=== PATIENT | female | born 1995 | race African-American/Black ===

== ENCOUNTER 2020-06-23 22:22 | Emergency (ER) | payer BC ==
[~2020-06-23] VITALS: Ht 180.3 cm; Wt 70.2 kg
[2020-06-24] LABS: BILIRUBIN,URINE NEG (NEG); CLARITY,URINE CLEAR; COLOR,URINE YELLOW; GLUCOSE,URINE NEG (NEG); NITRITE,URINE NEG (NEG); UROBILINOGEN,URINE 0.2 mg/dL (0.2 mg/dL)
[2020-06-24 00:01] LABS: BACTERIA,URINE FEW /HPF (0-FEW); SQUAMOUS EPITHELIAL CELL,UR MOD /LPF
[2020-06-24] MEDS ORDERED: CEPH-264 PO (00:26)
--- NOTE | 2020-06-24 00:27 | PHYS DOC ---
Adult General Chief Complaint Chief Complaint: PAIN ON URINATION HPI HPI Patient is a 24 year old female who presents with dysuria. She states this is been ongoing for the last couple of days. She does not typically get this. She does not believe she is ever had a UTI. She is not greatly concerned about STDs but she is not 100% sure and would like to be tested. She states that she only gets burning with urination. She is also been getting some lower abdominal cramping. These are intermittent. She denies any vaginal bleeding or discharge. She has not had any nausea, vomiting, diarrhea, constipation. Review of Systems Review of Systems General: Denies fever, chills, sweats, fatigue Eyes: Denies drainage, blurred vision, eye redness HENT: Denies rhinorrhea, sore throat, earache Respiratory: Denies cough, shortness of breath, wheezing Cardiac: Denies edema, palpitations, chest pain GI: Denies abdominal pain, Nausea, vomiting MSK: Denies back pain, neck pain Skin: Denies rash, jaundice Neuro: Denies headache, dizziness Psychiatric: Denies SI/HI Allergies Allergies Allergies Coded Allergies Type Severity Reaction Last Updated Verified No Known Drug Allergies 06/23/20 No Physical Exam Physical Exam General: Awake, alert, NAD. Well Nourished, well hydrated. Cooperative HEENT: Atraumatic, EOMI, PERRL, airway patent, moist oral mucosa Neck: Supple, trachea midline Respiratory: CTA bilaterally, normal effort, no wheezing/crackles CV: RRR, no murmur, cap refill <2 GI: Soft, nondistended, nontender, no masses MSK: No obvious deformities Skin: Warm, dry, intact Neuro: A&O x3, speech NL, sensory and motor grossly intact, no focal deficits Psych: Normal affect, normal mood, not suicidal or homicidal Current Patient Data Lab Results Laboratory Tests Test 06/23/20 23:20 Urine Collection Type Unknown Urine Color Yellow Urine Clarity Clear Urine pH 6.5 Urine Specific [place] >=1.030 Urine Protein Neg (NEG-TRACE) Urine Glucose (UA) Neg mg/dL (NEG) Urine Ketones (Stick) Neg mg/dL (NEG) Urine Blood Neg (NEG) Urine Nitrite Neg (NEG) Urine Bilirubin Neg (NEG) Urine Urobilinogen Dipstick 0.2 mg/dL (0.2 mg/dL) Urine Leukocyte Esterase Small (NEG) Urine RBC 3-5 /HPF (0-2) Urine WBC 11-20 /HPF (0-4) Urine Squamous Epithelial Cells Mod /LPF Urine Bacteria Few /HPF (0-FEW) EKG EKG [] Radiology/Procedures Radiology/Procedures [] Course & Med Decision Making Course & Med Decision Making Pertinent Labs and Imaging studies reviewed. (See chart for details) Dysuria and intermittent abdominal cramping.patient's test was positive. I have discussed the results with the patient. Given her intermittent abdominal cramping we will do an ultrasound to rule out an ectopic and beta-hCG will be ordered. Patient being treated empirically for gonorrhea and chlamydia. She will also be placed on Keflex for UTI. Ultrasound shows a 6-week . No signs of an ectopic at this time. Patient will follow-up with her [facility]. Patient's test results and vitals while in the ED were fully reviewed and discussed with the patient. Patient is stable and at this time does not need admission to the hospital. We have discussed strict return precautions and the importance of following up with their Primary Care Physician. Patient stated understanding and was given an opportunity to ask any questions. Patient is in agreement with plan. Dragon Disclaimer Dragon Disclaimer This electronic medical record was generated, in whole or in part, using a voice recognition dictation system. Departure Departure: Impression: Primary Impression: UTI (urinary tract infection) Additional Impression: Abdominal pain affecting Disposition: HOME/RESIDENCE PRIOR TO ADM Condition: STABLE Referrals: PCP,NO (PCP) Patient Instructions: Urinary Tract Infection Scripts Cephalexin (KEFLEX) 500 Mg Capsule 1 CAP PO BID for UTI for 7 Days, #14 CAP 0 Refills Prov: CHRIS REYES MD 06/24/20 Justification of Admission: Justification of Admission: Justification of Admission Dx: No Problem Qualifiers CHRIS REYES MD Jun 24, 2020 00:26
[2020-06-24] MEDS: ONDANSETRON ODT 4 MG TAB.RAPDIS PO ONE (02:04)
[2020-06-24] MEDS: cefTRIAXone IM 250 MG VIAL IM ONE (02:05)
[2020-06-24] MEDS: AZITHROMYCIN 250 MG TABLET. PO ONE (02:05)
--- NOTE | 2020-06-24 02:10 | RAD ---
Obstetric ultrasound less than 14 weeks with transvaginal: Reason for examination: Pain on urination. Transabdominal and transvaginal ultrasound examination of the pelvis was performed. Transabdominally, the bladder is not well-distended and uterus and adnexal structures are poorly visualized. Transvaginally, the uterus measures 10 x 7 x 6 cm in greatest dimension with no focal lesion. Intrauterine gestational sac is present and shows a normal contour. Yolk sac is identified. pole is present with a cardiac rate of 120 bpm. [place]-rump length is 0.79 cm corresponding to gestational age of 6 weeks 5 days with estimated date of confinement of 02/12/2021. Right ovary measures 3.9 x 2.6 x 2.1 cm in greatest dimension and shows normal vascular flow with corpus luteum measuring 2.3 cm in size. Left ovary is normal in size at 2.8 x 1.7 x 1.4 cm in greatest dimension with good vascular flow and no mass. No free fluid is present. IMPRESSION: Single viable intrauterine gestation with a mean gestational age estimated at 6 weeks 5 days with estimated date of confinement of 02/12/2021. Probable corpus luteum at the right ovary measuring 2.3 cm in size. Electronically signed by: Opal Hickey MD (06/24/2020 2:07 AM) [id number]
[2020-06-24 02:38] VITALS: BP 101/72
== END 2020-06-24 02:38 | disposition home or self-care (01) ==
LOC: ER 22:22
DX: O23.41 Unspecified infection of urinary tract in pregnancy, first trimester (principal); Z3A.01 Less than 8 weeks gestation of pregnancy
CPT/HCPCS: 36415; 76801; 76817; 81001; 81025; 84702; 87086; 96372; 99284; J0456; J0696; Q0162